=== PATIENT | female | born 1990 | race Caucasian/White ===

== ENCOUNTER 2023-05-24 13:53 | Emergency (ER) | payer OTHER, SELFPAY ==
[~2023-05-24] VITALS: Ht 160 cm; Wt 65.9 kg
[2023-05-24] MEDS ORDERED: BUPR1FIL (14:19)
[2023-05-24] MEDS ORDERED: GABA800T4 (14:19)
[2023-05-24] MEDS ORDERED: SYMB16INH (14:20)
[2023-05-24] MEDS ORDERED: SPIR1AER (14:20)
[2023-05-24] MEDS ORDERED: ACETAMINOPHEN TAB 650MG DOSE (2X325MG) PO ONE (14:25)
[2023-05-24 15:19] LABS: RSV AMPLIFICATION NEGATIVE (NEGATIVE)
[2023-05-24 16:10] VITALS: BP 128/58; TEMP 99.9; O2SAT 99
== END 2023-05-24 16:21 | disposition home or self-care (01) ==
LOC: M ED 13:53
DX: J10.89 Influenza due to other identified influenza virus with other manifestations (principal); F17.210 Nicotine dependence, cigarettes, uncomplicated; Z88.0 Allergy status to penicillin; Z88.8 Allergy status to other drugs, medicaments and biological substances; Z91.013 Allergy to seafood

== ENCOUNTER 2023-09-22 16:01 | Emergency (ER) | payer OTHER ==
[~2023-09-22] VITALS: Ht 160 cm; Wt 59.0 kg
[~2023-09-22 16:01] MED LIST: BUPR1FIL; GABA800T4; SPIR1AER; SYMB16INH
[2023-09-22 16:37] LABS: VENOUS BASE EXCESS -4.4 (-2.0-2.0); VENOUS HCO3 18.7 MMOL/L (23.0-27.0); VENOUS O2 SATURATION 93.3 % (60.0-80.0); VENOUS PARTIAL PRESSURE CO2 29.5 mmHg (38.0-50.0); VENOUS PARTIAL PRESSURE O2 65.8 mmHg (30.0-50.0); VENOUS STANDARD HCO3 20.8 MMOL/L; VENOUS TOTAL CO2 19.6 MMOL/L (24.0-28.0)
[2023-09-22 16:40] LABS: BASO % 0.4 % (0.0-1.0); EOS % 0.6 % (0.0-3.0); HEMATOCRIT 39.6 % (36.0-47.0); HEMOGLOBIN 14.2 g/dl (12.0-15.5); LYMPH # 2.2 10^3/uL (1.5-5.0); LYMPH % 31.3 % (24.0-44.0); MEAN CORPUSCULAR HEMOGLOBIN 32.9 pg (27.0-33.0); MEAN CORPUSCULAR HGB CONC 35.9 g/dl (32.0-36.5); MEAN CORPUSCULAR VOLUME 91.7 fl (80.0-96.0); MONO # 0.3 10^3/uL (0.0-0.8); MONO % 4.8 % (2.0-8.0); NEUTROPHILS # 4.5 10^3/uL (1.5-8.5); NEUTROPHILS % 62.6 % (36.0-66.0); PLATELET COUNT, AUTOMATED 241 10^3/uL (150-450); RED BLOOD COUNT 4.32 10^6/uL (4.00-5.40); WHITE BLOOD COUNT 7.1 10^3/uL (4.0-10.0)
[2023-09-22] MEDS ORDERED: LIDOCAINE W/EPINEPHRINE 1% 20ML VIAL As Ordered ONE (16:48)
[2023-09-22] MEDS: LIDOCAINE W/EPINEPHRINE 1% 20ML VIAL SC ONE (16:50)
[2023-09-22] MEDS: BOOSTRIX VACCINE (TETANUS/DIPHTH/ACEL. PERTUSSIS) 0.5ML SYR IM.IMMUN ONE (16:52)
[2023-09-22] MEDS: ceFAZolin SOD 1 GM in D5W MINI-BAG PLUS 50 ML IV ONE (16:56)
[2023-09-22 17:10] LABS: ETHYL ALCOHOL (ETHANOL) < 0.003 % (0.000-0.010)
[2023-09-22 17:12] LABS: BLOOD UREA NITROGEN 13 MG/DL (9-23); CALCIUM LEVEL 9.5 MG/DL (8.5-10.1); CARBON DIOXIDE LEVEL 21 MMOL/L (20-31); CHLORIDE LEVEL 109 MMOL/L (98-107); GLOMERULAR FILTRATION RATE > 60.0 (>60); GLUCOSE, FASTING 100 MG/DL (60-100); INR 1.06; POTASSIUM SERUM 3.6 MMOL/L (3.5-5.1); PROTHROMBIN TIME 13.5 SECONDS (12.5-14.5); SODIUM LEVEL 137 MMOL/L (136-145)
[2023-09-22] MEDS: NEOSPORIN TOP OINT 15GM TOP ONE (17:20)
[2023-09-22] MEDS ORDERED: CEPH500C PO (17:58)
[2023-09-22 18:05] VITALS: BP 127/91; TEMP 98.4; O2SAT 99
== END 2023-09-22 18:12 | disposition home or self-care (01) ==
LOC: M ED 16:01 → EDBD 16:01 → M ED 18:12
DX: S01.01XA Laceration without foreign body of scalp, initial encounter (principal); S66.124A Laceration of flexor muscle, fascia and tendon of right ring finger at wrist and hand level, initial encounter; Y92.410 Unspecified street and highway as the place of occurrence of the external cause; Y93.9 Activity, unspecified; Y99.9 Unspecified external cause status; Y04.8XXA Assault by other bodily force, initial encounter; Z88.0 Allergy status to penicillin; Z88.8 Allergy status to other drugs, medicaments and biological substances; Z91.013 Allergy to seafood; Z79.899 Other long term (current) drug therapy; Z23 Encounter for immunization
CPT/HCPCS: 12001; 70450; 71045; 73130; 80047; 80048; 82077; 82803; 84702; 85025; 85610; 90471; 90715; 93041; 94760; 96365; 96372; 99285; J0690